=== PATIENT | male | born 1975 | race Caucasian/White ===

== ENCOUNTER 2017-05-15 10:25 | Emergency (ER) | payer MEDICAID ==
[~2017-05-15] VITALS: Ht 180.3 cm; Wt 101.0 kg
[2017-05-15 10:33] VITALS: BP 130/84
[2017-05-15] MEDS ORDERED: LIDOCAINE 1%, 10ML ONE (10:56)
[2017-05-15] MEDS ORDERED: DIPH,PERTUSS(ACELL),TET VAC/PF 0.5 ML IM-VACC ONE ×2 (11:00→11:29)
[2017-05-15] MEDS ORDERED: LIDOCAINE 1%, 20ML SQ ONE (11:00)
== END 2017-05-15 11:59 | disposition home or self-care (01) ==
LOC: ED 11:53
DX: L02.414 Cutaneous abscess of left upper limb (principal)
CPT/HCPCS: 10060; 90471; 90715; 99283; J3490

== ENCOUNTER 2017-05-17 15:43 | Emergency (ER) | payer MEDICAID ==
[~2017-05-17] VITALS: Ht 180.3 cm; Wt 102.8 kg
[2017-05-17 15:51] VITALS: BP 134/83
== END 2017-05-17 16:44 | disposition home or self-care (01) ==
LOC: ED 16:37
DX: Z48.01 Encounter for change or removal of surgical wound dressing (principal)
CPT/HCPCS: 99283

== ENCOUNTER 2017-09-08 16:20 | Emergency (ER) | payer MEDICAID ==
[~2017-09-08] VITALS: Ht 182.9 cm; Wt 100.0 kg
[2017-09-08 19:09] LABS: MICROSCOPIC NOT IND
[2017-09-08 19:11] LABS: CULTURE INDICATED? NO
[2017-09-08 19:12] VITALS: BP 138/82
== END 2017-09-08 19:48 | disposition home or self-care (01) ==
LOC: ED 17:56
DX: S76.911A Strain of unspecified muscles, fascia and tendons at thigh level, right thigh, initial encounter (principal); R10.2 Pelvic and perineal pain; V00.311A Fall from snowboard, initial encounter; Y93.23 Activity, snow (alpine) (downhill) skiing, snowboarding, sledding, tobogganing and snow tubing; Y92.89 Other specified places as the place of occurrence of the external cause; Y99.8 Other external cause status
CPT/HCPCS: 72192; 81003; 99285